=== PATIENT | female | born 1965 | race Two or more races ===

== ENCOUNTER 2023-05-26 05:10 | Emergency (ER) | payer OTHER, MEDICAID ==
[~2023-05-26] VITALS: Ht 160 cm; Wt 90.9 kg
[2023-05-26 05:21] VITALS: BP 117/65; PULSE 86; RESP 20; O2SAT 98
== END 2023-05-26 06:06 | disposition left against medical advice (07) ==
LOC: ER 05:10
DX: R10.9 Unspecified abdominal pain (principal); Z53.21 Procedure and treatment not carried out due to patient leaving prior to being seen by health care provider
CPT/HCPCS: 93005